=== PATIENT | female | born 1955 | race Two or more races ===

== ENCOUNTER 2020-11-18 05:39 | Emergency (ER) | payer MEDICAID ==
[~2020-11-18] VITALS: Ht 157.5 cm; Wt 91.0 kg
[~2020-11-18 05:39] MED LIST: ANAS1TAB7 PO; METF-416 PO; ONDA8TAB6 PO
[2020-11-18 06:52] LABS: BASOPHILS % 1.5 % (0.0-2.0); EOSINOPHILS % 1.5 % (0.0-5.0); HEMATOCRIT. 38.8 % (36.0-48.0); HEMOGLOBIN. 13.3 g/dL (12.0-16.0); LYMPHOCYTES % 22.7 % (20.0-50.0); MEAN CORPUSCULAR HEMOGLOBIN 30.7 pg (28.0-32.0); MEAN CORPUSCULAR VOLUME 89.2 fL (81.0-99.0); MEAN PLATELET VOLUME 8.4 fl (7.4-10.4); MONOCYTES % 5.8 % (2.0-8.0); NEUTROPHILS % 68.5 % (40.0-76.0); PLATELET 250 x1000/uL (130-400); RED BLOOD CELL COUNT 4.35 mill/uL (4.2-5.4); RED CELL DISTRIBUTION WIDTH 13.2 % (11.6-14.6)
[2020-11-18 07:20] LABS: CHLORIDE 103 mEq/L (98-107)
[2020-11-18 07:31] VITALS: BP 127/70
== END 2020-11-18 11:00 | disposition home or self-care (01) ==
LOC: ER 05:39
DX: R42 Dizziness and giddiness (principal); E11.65 Type 2 diabetes mellitus with hyperglycemia; I10 Essential (primary) hypertension; Z85.6 Personal history of leukemia; Z98.890 Other specified postprocedural states
CPT/HCPCS: 36415; 80053; 84484; 85025; 93005; 99284